=== PATIENT | male | born 1970 | race African-American/Black ===

== ENCOUNTER 2025-05-21 14:53 | Emergency (ER) | payer MEDICAID, OTHER ==
[~2025-05-21] VITALS: Ht 182.9 cm; Wt 81.6 kg
[~2025-05-21 14:53] MED LIST: TOPUD
[2025-05-21 15:07] VITALS: O2SAT 98
[2025-05-21] MEDS: ACETAMINOPHEN 325MG TABLET PO ONE (18:01)
[2025-05-21] MEDS: KETOROLAC 15MG/ML VIAL IM ONE (18:01)
[2025-05-21] MEDS ORDERED: CYCL10TA21 MT (18:28)
[2025-05-21] MEDS ORDERED: NAPR-679 MT (18:28)
[2025-05-21] MEDS ORDERED: ACET-2708 MT (18:28)
[2025-05-21 18:50] VITALS: BP 199/126; PULSE 62; RESP 15; TEMP 36.8; O2SAT 98
== END 2025-05-21 18:51 | disposition home or self-care (01) ==
LOC: ER 14:53
DX: M47.22 Other spondylosis with radiculopathy, cervical region (principal); E78.00 Pure hypercholesterolemia, unspecified; Z79.899 Other long term (current) drug therapy
CPT/HCPCS: 99285; 70450; 72125; 96372; J1885